=== PATIENT | female | born 1985 | race African-American/Black ===

== ENCOUNTER → 2020-06-23 08:42 | Outpatient (CLI) | payer BC, SELFPAY ==
--- NOTE | ~2020-06-23 | US_ITS ---
EXAMINATION: US OB <= 14 weeks fetus DATE: 06/23/2020 09:11 INDICATION: First trimester dating TECHNIQUE: Real-time pelvic transabdominal and transvaginal ultrasound was performed. COMPARISON: None. FINDINGS: The uterus measures 11.3 x 6.1 x 7.9 cm. There is an intrauterine gestational sac. A yolk sac is identified. heart motion is identified measuring 167 beats per minute (bpm) by M-mode Do ppler. The crown rump length measures 2.9 cm , which correlates with an estimated gestational a ge of 9 weeks and 5 day(s) (+/-) 6 day(s). The right ovary measures 5.8 x 3.6 x 5.4 cm and contains a 3.7 cm cyst. The left ovary measures 2.6 x 1.6 x 2.5 cm. There is normal vascular flow in the ovaries. There is no free fluid in the pelvis. IMPRESSION: 1. Live intrauterine with an estimated gestational age of 9 weeks and 5 day(s) (+/-) 6 day( s) and an estimated delivery date of 01/21/2021. Reviewed, dictated and finalized at location A. IMPRESSION: 1. Live intrauterine with an estimated gestational age of 9 weeks and 5 day(s) (+/-) 6 day(s) and an estimated delivery date of 01/21/2021.
== END ==
PROVIDERS: Visit Provider Obstetrics & Gynecology
DX: Z36.87 Encounter for antenatal screening for uncertain dates (principal); Z3A.09 9 weeks gestation of pregnancy
CPT/HCPCS: 76801

== ENCOUNTER 2021-01-09 17:10 | Outpatient (RCR) | payer BC, SELFPAY ==
[2020-12-28 16:50] VITALS: BP 101/63; PULSE 76
[2021-01-02 19:00] VITALS: BP 112/67; PULSE 76
[2021-01-06 15:44] VITALS: BP 106/64; PULSE 74
[2021-01-09 18:17] VITALS: BP 114/79; PULSE 75
== END 2021-01-28 09:25 | disposition home or self-care (01) ==
LOC: ANHOBOP 17:10
PROVIDERS: Visit Provider Obstetrics & Gynecology
DX: O24.419 Gestational diabetes mellitus in pregnancy, unspecified control (principal); Z3A.36 36 weeks gestation of pregnancy; Z3A.37 37 weeks gestation of pregnancy; Z3A.38 38 weeks gestation of pregnancy
CPT/HCPCS: 59025; 84112

== ENCOUNTER 2021-01-12 05:16 | Observation (INO) | payer BC, SELFPAY ==
--- NOTE | 2021-01-12 05:16 | OBADM ---
This patient, Odessa Molina, admitted to the OB room Labor/Delivery/Recovery 104 for observation. Patient/family oriented to hospital policies and general routines including ID bracelet, bed and alarms, visiting hours, pain management, procedures, bathroom and other care routines, personal items, smoking policy, room service/diet, and visiting hours. Patient/Family are encouraged to report perceived risks to care and to ask questions if they do not understand what they are told or what they should do.
[2021-01-12 05:33] VITALS: RESP 18; TEMP 36.4
--- NOTE | 2021-01-12 05:33 | PC.NURSE ---
pt came in with complaints of all over pain, mostly in her back and head. Pt states it started last night and she has not been able to sleep all night. pt has not taken any medication for her pain.
[2021-01-12 06:01] VITALS: BP 121/76; PULSE 66
[2021-01-12 06:02] LABS: Glucose Point of Care 92 mg/dl (65-105)
[2021-01-12 06:07] LABS: Add Urine Microscopic? YES; Appearance Urine Cloudy (Clear); Bacteria Urine Trace /hpf; Bilirubin Urine Negative (Negative); Blood Urine Negative (Negative); Color Urine Straw (Yellow); Glucose Urine UA Negative (Negative); Ketones Urine Negative (Negative); Leukocyte Esterase Ur Negative LEU/UL (Negative); Nitrate Urine Negative (Negative); Protein Urine Negative (Negative); RBC Urine 0-2 /hpf (0-2); Specific Grav Ur 1.006 (1.001-1.035); Squamous Epithelial Cell Urine Rare /hpf (Few); Urobilinogen Urine Negative mg/dL (<2.0); WBC Urine 0-3 /hpf
[2021-01-12 06:09] VITALS: BMI 30.4
[2021-01-12 06:15] VITALS: BP 127/81; PULSE 71
[2021-01-12] MEDS: ACETAMINOPHEN 500 MG TABLET 1000 MG PO (06:21)
[2021-01-12 06:34] LABS: Basophils Percent Auto 0.2 % (0.2-1.2); Eosinophils Percent Auto 0.4 % (0-4.4); Hematocrit 32.1 % (37.0-47.0); Immature Granulocyte Absolute 0.05 K/mm3 (0.00-0.031); Immature Granulocyte Percent A 0.5 % (0-0.5); Immature Platelet Fraction Pct 11.9 % (0.9-11.2); Lymphocytes Absolute Auto 1.72 K/mm3 (0.9-3.2); Lymphocytes Percent Auto 17.6 % (18.3-44.2); Mean Corpuscular HGB Conc 31.2 g/dl (32-36); Mean Corpuscular Hemoglobin 22.2 pg (26-34); Mean Corpuscular Volume 71.3 fl (80-100); Mean Platelet Volume 12.7 fl (7.4-10.4); Monocytes Absolute Auto 0.8 K/mm3 (0.1-0.6); Monocytes Percent Auto 7.9 % (2.6-8.5); Neutrophils Absolute Auto 7.2 K/mm3 (1.3-6.7); Neutrophils Percent Auto 73.4 % (45.5-73.1); Platelet Count Result 161 k/mm3 (150-375); Red Cell Distribution Width 14.7 % (11.5-14.5); White Blood Count 9.8 K/mm3 (4.5-10.0)
[2021-01-12 06:39] LABS: Creatinine Urine 55.8 mg/dL; Total Protein Urine Random 7 mg/dL; Ur Ttl Prot Creatinine Ratio 0.13 mg/mg (0-0.20)
[2021-01-12 06:44] LABS: Alanine Aminotransferase 13 U/L (4-35); Albumin Level 3.5 g/dL (3.5-5.1); Alkaline Phosphatase 170 U/L (38-126); Anion Gap 7 mmol/L (8-16); Aspartate Amino Transferase 22 U/L (14-36); Bilirubin,Total 0.3 mg/dL (0.2-1.3); Blood Urea Nitrogen 10 mg/dL (7-17); Calcium 9.5 mg/dL (8.4-10.2); Carbon Dioxide 21 mmol/L (22-30); Chloride 109 mmol/L (98-107); Estimated CRCL calculation 87 ml/min; Estimated Glomerular Filt Rate > 60; Glucose 91 mg/dL (65-110); Potassium 4.1 mmol/L (3.4-5.0); Sodium 137 mmol/L (137-145); Uric Acid 6.1 mg/dL (2.5-7.5)
--- NOTE | 2021-02-03 23:41 | PM.OBTRLD ---
OB - Triage/Final Diagnosis Visit Information Comments/Additional reasons for admission: I have assessed the risk for this patient, Odessa Molina, and determined that she would benefit from observation care. Evaluation Laboratory results: Laboratory Tests 01/12/21 01/12/21 01/12/21 05:57 05:59 06:15 WBC 9.8 RBC 4.50 Hgb 10.0 L Hct 32.1 L MCV 71.3 L MCH 22.2 L MCHC 31.2 L RDW 14.7 H Plt Count 161 MPV 12.7 H Immature Gran % (Auto) 0.5 Neut % (Auto) 73.4 H Lymph % (Auto) 17.6 L [place] % (Auto) 7.9 Eos % (Auto) 0.4 Baso % (Auto) 0.2 Lymph # (Auto) 1.72 [place] # (Auto) 0.8 H Eos # (Auto) 0.0 Baso # (Auto) 0.0 Abs Immat Gran (auto) 0.05 H Absolute Neuts (auto) 7.2 H Absolute Nucleated RBC 0.0 Nucleated RBC % 0.0 % Immature Plt Fraction 11.9 H Sodium Potassium Chloride Carbon Dioxide Anion Gap BUN Creatinine Estim Creat Clear Calc Estimated GFR Glucose POC Capillary Glucose 92 Uric Acid Calcium Total Bilirubin AST ALT Alkaline Phosphatase Total Protein Albumin Urine Color Straw Urine Appearance Cloudy H Urine pH 7.0 Ur Specific [place] 1.006 Urine Protein Negative Urine Glucose (UA) Negative Urine Ketones Negative Ur Blood (Man) Negative Urine Nitrate Negative Urine Bilirubin Negative Urine Urobilinogen Negative Leukocyte Esterase Rfl Negative Urine RBC 0-2 Urine WBC 0-3 Ur Squamous Epith Cells Rare Urine Bacteria Trace U Random Total Protein Urine Creatinine Protein/Creat Ratio 2 01/12/21 01/12/21 06:15 06:19 WBC RBC Hgb Hct MCV MCH MCHC RDW Plt Count MPV Immature Gran % (Auto) Neut % (Auto) Lymph % (Auto) [place] % (Auto) Eos % (Auto) Baso % (Auto) Lymph # (Auto) [place] # (Auto) Eos # (Auto) Baso # (Auto) Abs Immat Gran (auto) Absolute Neuts (auto) Absolute Nucleated RBC Nucleated RBC % % Immature Plt Fraction Sodium 137 Potassium 4.1 Chloride 109 H Carbon Dioxide 21 L Anion Gap 7 L BUN 10 Creatinine 0.70 Estim Creat Clear Calc 87 Estimated GFR > 60 Glucose 91 POC Capillary Glucose Uric Acid 6.1 Calcium 9.5 Total Bilirubin 0.3 AST 22 ALT 13 Alkaline Phosphatase 170 H Total Protein 7.0 Albumin 3.5 Urine Color Urine Appearance Urine pH Ur Specific [place] Urine Protein Urine Glucose (UA) Urine Ketones Ur Blood (Man) Urine Nitrate Urine Bilirubin Urine Urobilinogen Leukocyte Esterase Rfl Urine RBC Urine WBC Ur Squamous Epith Cells Urine Bacteria U Random Total Protein 7 Urine Creatinine 55.8 Protein/Creat Ratio 2 0.13 Final Diagnosis (1) False labor: Code(s): O47.9 - False labor, unspecified Status: Acute (2) PIH ( induced hypertension): Code(s): O13.9 - Gestational [-induced] hypertension without significant proteinuria, unspecified trimester Status: Acute
== END 2021-01-12 07:58 | disposition home or self-care (01) ==
PROVIDERS: Admitting Provider Obstetrics & Gynecology; Visit Provider Obstetrics & Gynecology
DX: O47.1 False labor at or after 37 completed weeks of gestation (principal); O13.3 Gestational [pregnancy-induced] hypertension without significant proteinuria, third trimester; Z3A.38 38 weeks gestation of pregnancy
CPT/HCPCS: 36415; 80053; 81001; 82570; 82948; 84156; 84550; 85025; 85055; A9270; G0378; G0379

== ENCOUNTER 2021-01-14 01:00 | Inpatient (IN) | payer BC, SELFPAY ==
[2021-01-14] VITALS (150 sets, daily range): BP systolic 83–149; BP diastolic 51–114; PULSE 52–265; TEMP 36.4–37.8; O2SAT 88–100; BMI 31.2
[2021-01-14 02:04] LABS: Glucose Point of Care 91 mg/dl (65-105)
[2021-01-14 02:10] LABS: Basophils Percent Auto 0.2 % (0.2-1.2); Eosinophils Percent Auto 0.2 % (0-4.4); Hematocrit 30.5 % (37.0-47.0); Hemoglobin 9.7 g/dL (12.0-15.0); Immature Granulocyte Absolute 0.05 K/mm3 (0.00-0.031); Immature Granulocyte Percent A 0.5 % (0-0.5); Immature Platelet Fraction Pct 12.2 % (0.9-11.2); Lymphocytes Absolute Auto 1.58 K/mm3 (0.9-3.2); Lymphocytes Percent Auto 16.8 % (18.3-44.2); Mean Corpuscular HGB Conc 31.8 g/dl (32-36); Mean Corpuscular Hemoglobin 22.5 pg (26-34); Mean Corpuscular Volume 70.6 fl (80-100); Mean Platelet Volume 12.8 fl (7.4-10.4); Monocytes Absolute Auto 0.7 K/mm3 (0.1-0.6); Monocytes Percent Auto 7.2 % (2.6-8.5); Neutrophils Percent Auto 75.1 % (45.5-73.1); Platelet Count Result 159 k/mm3 (150-375); Red Blood Count 4.32 M/mm3 (4.2-5.4); Red Cell Distribution Width 14.6 % (11.5-14.5); White Blood Count 9.4 K/mm3 (4.5-10.0)
[2021-01-14] MEDS: DINOPROSTONE 10 MG VAG INSERT VAGINAL (02:15)
--- NOTE | 2021-01-14 02:20 | LDADM ---
This patient, Odessa Molina, was admitted to Labor/Delivery/Recovery 109 on 01/14/21 at 01:00. Plans for labor, pain management and were discussed with patient. Patient/family oriented to hospital policies and general routines including ID bracelet, bed and alarms, visiting hours, pain management, procedures, bathroom and other care routines, personal items, smoking policy, room service/diet and guest tray routines, security routines, and visiting hours. Patient/Family are encouraged to report perceived risks to care and to ask questions if they do not understand what they are told or what they should do. See OBIX for further documentation.
[2021-01-14 06:38] LABS: Glucose Point of Care 66 mg/dl (65-105)
[2021-01-14 09:46] LABS: Glucose Point of Care 108 mg/dl (65-105)
[2021-01-14 11:41] LABS: Rapid Plasma Reagin Non-Reactive (NonReactive)
--- NOTE | 2021-01-14 11:56 | WPDOBADMIT ---
Obstetrics - Admit Note Admission Note: record reviewed. No pertinent additions to the history and/or any subsequent changes in the physical findings that are not consistent with the expected course of the were found. AROm yellow tinged fluid 1-/-2 Additions to the history and/or subsequent changes in the physical findings follow. None.
[2021-01-14] MEDS: fentaNYL CITRATE INJ (*CRX) 100 MCG/2 ML VIAL 50 MCG IV PUSH (13:27)
[2021-01-14 14:17] LABS: Glucose Point of Care 60 mg/dl (65-105)
[2021-01-14] MEDS: fentaNYL CITRATE INJ (*CRX) 100 MCG/2 ML VIAL IV PUSH (14:30)
[2021-01-14] MEDS: OXYTOCIN 30 UNITS/NS 500 ML 30 UNITS/500 ML BAG 6 UNITS IV CONT (15:45)
[2021-01-14] MEDS: LACTATED RINGERS 1,000 ML 125 ML IV CONT ×3 (15:46→22:25)
--- NOTE | 2021-01-14 16:49 | WPDANESEPPF ---
Anes - Initial Pre Proc Eval Procedure: labor epidural Date/Time: 01/14/21 16:49 Surgeon: Pancho Guajardo MD Pre Op Diagnosis: labor pain Pre Op Diagnosis: Induction Patient Data Age: 35 Gender: F Height: 1.55 m Weight: 75 kg Last Vital Signs Temp 36.6 C 01/14/21 11:55 Pulse 61 01/14/21 16:48 BP 119/79 01/14/21 16:48 Pulse Ox 100 01/14/21 16:47 Allergies Allergy/AdvReac Type Severity Reaction Status Date / Time No Known Allergies Allergy Verified 12/25/20 14:31 Home Medications Medication Instructions Recorded Confirmed Type Novolin N NPH U-100 Insulin 4 unit SUBCUT HS 01/06/21 01/14/21 History PNV cmb#95-ferrous fumarate-FA 1 tablet PO DAILY 01/06/21 01/14/21 History [] aspirin 81 mg PO DAILY 01/06/21 01/14/21 History Laboratory Tests 01/14/21 01/14/21 01/14/21 01:56 01:58 01:58 WBC 9.4 K/mm3 K/mm3 (4.5-10.0) RBC 4.32 M/mm3 M/mm3 (4.2-5.4) Hgb 9.7 g/dL L g/dL (12.0-15.0) Hct 30.5 % L % (37.0-47.0) MCV 70.6 fl L fl (80-100) MCH 22.5 pg L pg (26-34) MCHC 31.8 g/dl L g/dl (32-36) RDW 14.6 % H % (11.5-14.5) Plt Count 159 k/mm3 k/mm3 (150-375) MPV 12.8 fl H fl (7.4-10.4) Immature Gran % (Auto) 0.5 % % (0-0.5) Neut % (Auto) 75.1 % H % (45.5-73.1) Lymph % (Auto) 16.8 % L % (18.3-44.2) Hamblen % (Auto) 7.2 % % (2.6-8.5) Eos % (Auto) 0.2 % % (0-4.4) Baso % (Auto) 0.2 % % (0.2-1.2) Lymph # (Auto) 1.58 K/mm3 K/mm3 (0.9-3.2) Hamblen # (Auto) 0.7 K/mm3 H K/mm3 (0.1-0.6) Eos # (Auto) 0.0 K/mm3 K/mm3 (0-0.3) Baso # (Auto) 0.0 K/mm3 K/mm3 (0.0-0.1) Abs Immat Gran (auto) 0.05 K/mm3 H K/mm3 (0.00-0.031) Absolute Neuts (auto) 7.0 K/mm3 H K/mm3 (1.3-6.7) Absolute Nucleated RBC 0.0 K/mm3 K/mm3 (0.0-0.012) Nucleated RBC % 0.0 % % (0.0-0.2) % Immature Plt Fraction 12.2 % H % (0.9-11.2) POC Capillary Glucose 91 mg/dl mg/dl (65-105) RPR Non-reactive (NonReactive) Blood Type Antibody Screen 01/14/21 01/14/21 01/14/21 01:58 06:24 09:43 WBC RBC Hgb Hct MCV MCH MCHC RDW Plt Count MPV Immature Gran % (Auto) Neut % (Auto) Lymph % (Auto) Hamb[place] % (Auto) Eos % (Auto) Baso % (Auto) Lymph # (Auto) Hamb[place] # (Auto) Eos # (Auto) Baso # (Auto) Abs Immat Gran (auto) Absolute Neuts (auto) Absolute Nucleated RBC Nucleated RBC % % Immature Plt Fraction POC Capillary Glucose 66 mg/dl mg/dl 108 mg/dl H mg/dl (65-105) (65-105) RPR Blood Type A Positive Antibody Screen Negative 01/14/21 14:14 WBC RBC Hgb Hct MCV MCH MCHC RDW Plt Count MPV Immature Gran % (Auto) Neut % (Auto) Lymph % (Auto) Hamb[place] % (Auto) Eos % (Auto) Baso % (Auto) Lymph # (Auto) Hamb[place] # (Auto) Eos # (Auto) Baso # (Auto) Abs Immat Gran (auto) Absolute Neuts (auto) Absolute Nucleated RBC Nucleated RBC % % Immature Plt Fraction POC Capillary Glucose 60 mg/dl L mg/dl (65-105) RPR Blood Type Antibody Screen Patient hx anesthesia problems: none Family hx anesthesia problems: none Results Review: All pre-operative results and documents have been reviewed as part of the pre-operative evaluation. [facility] Past Medical History Medical History (Updated 01/14/21 @ 16:49 by
[2021-01-14 18:21] LABS: Glucose Point of Care 70 mg/dl (65-105)
[2021-01-14 20:55] LABS: Glucose Point of Care 62 mg/dl (65-105)
[2021-01-14] MEDS: SODIUM CHLORIDE 0.9% IV 300 ML 600 ML I-UTERINE (22:26)
[2021-01-14 23:20] LABS: Glucose Point of Care 71 mg/dl (65-105)
[2021-01-15] VITALS (94 sets, daily range): BP systolic 83–156; BP diastolic 36–108; PULSE 54–119; RESP 14–18; TEMP 36.5–37.1; O2SAT 94–100
[2021-01-15 01:37] LABS: Glucose Point of Care 85 mg/dl (65-105)
[2021-01-15 03:04] LABS: Glucose Point of Care 82 mg/dl (65-105)
--- NOTE | 2021-01-15 03:41 | WPDANESEPPF ---
Anes - Initial Pre Proc Eval Procedure: Operation Date: 01/15/21 03:45 Proposed Procedures p Section - Pancho Guajardo MD Date/Time: 01/15/21 03:41 Surgeon: Pancho Guajardo MD Pre Op Diagnosis: non reassuring heart tones Patient Data Age: 35 Gender: F Height: 1.55 m Weight: 75 kg Last Vital Signs Temp 37.1 C 01/15/21 02:45 Pulse 66 01/15/21 03:30 BP 149/108 H 01/15/21 03:30 Pulse Ox 100 01/15/21 03:32 Allergies Allergy/AdvReac Type Severity Reaction Status Date / Time No Known Allergies Allergy Verified 12/25/20 14:31 Home Medications Medication Instructions Recorded Confirmed Type Novolin N NPH U-100 Insulin 4 unit SUBCUT HS 01/06/21 01/14/21 History PNV cmb#95-ferrous fumarate-FA 1 tablet PO DAILY 01/06/21 01/14/21 History [] aspirin 81 mg PO DAILY 01/06/21 01/14/21 History Laboratory Tests 01/14/21 01/14/21 01/14/21 01:58 01:58 06:24 POC Capillary Glucose 66 mg/dl mg/dl (65-105) RPR Non-reactive (NonReactive) Blood Type A Positive Antibody Screen Negative 01/14/21 01/14/21 01/14/21 09:43 14:14 18:13 POC Capillary Glucose 108 mg/dl H mg/dl 60 mg/dl L mg/dl 70 mg/dl mg/dl (65-105) (65-105) (65-105) RPR Blood Type Antibody Screen 01/14/21 01/14/21 01/15/21 20:48 23:17 00:59 POC Capillary Glucose 62 mg/dl L mg/dl 71 mg/dl mg/dl 85 mg/dl mg/dl (65-105) (65-105) (65-105) RPR Blood Type Antibody Screen 01/15/21 02:43 POC Capillary Glucose 82 mg/dl mg/dl (65-105) RPR Blood Type Antibody Screen Patient hx anesthesia problems: none Family hx anesthesia problems: none Results Review: All pre-operative results and documents have been reviewed as part of the pre-operative evaluation. PMFSH Past Medical History Medical History (Updated 01/14/21 @ 16:49 by Richard Francis DO) GDM (gestational diabetes mellitus) Family History Family History (Updated 12/25/20 @ 14:32 by Saroj Lester RN) Grandparent Diabetes mellitus Hypertension Mother Diabetes mellitus Hypertension Social History Social History Smoking status: Never smoker Substance use: never Spiritual care concerns: No Anes - Eval Final PreProcedure Day of Procedure 01/15/21 03:41 Patient weight: obese Heart: regular rate and rhythm Lungs: clear to auscultation and normal air movement Airway: Mallampati scale class II Neurological: alert and oriented Last oral intake: >/= 8 hours ASA classification: III Emergent: yes Anesthetic plan: proceed Anesthesia type and monitoring: regional epidural and standard monitoring Results Review: All pre-operative results and documents have been reviewed as part of the pre-operative evaluation. Informed Consent: The patient's anesthetic plan and its attendant risks and benefits were discussed with the patient/family/POA. Questions were solicited and answers provided to the satisfaction of the patient/family/POA.
[2021-01-15] MEDS: ceFAZolin 2 GM/D5W 50 ML 2 GM/50 ML BAG IVPB (03:50)
--- NOTE | 2021-01-15 04:53 | P.PCNOB_ITS ---
OB - Delivery Note Procedure Delivery date: 01/15/21 Procedure: Procedures Operation Date: 01/15/21 03:45 <No data on this case meets the specified criteria> events: Labor Induction Intrapartal events: None Induction method: AROM Delivery monitor: external FHT, external uterine and internal uterine Route of delivery: Laceration Description: None Specimen: Yes Quantitative Blood Loss (ml): 640 Anesthesia type: Epidural Disposition: PACU [place] Baby Date of : 01/15/21 Time of : 04:03 Weeks of gestation at delivery: 39 Infant gender: Male Weight (pounds): 7 Weight (ounces): 14 presentation: vertex position: Left Occiput Posterior Placenta delivery description: Spontaneous cord vessel description: 3 Vessels and Clamped/Cut score one minute: 8 score five minutes: 9
--- NOTE | 2021-01-15 04:56 | PM.OBDSVD ---
DS: Admitting Diagnosis Discharge Date 01/18/21 Admitting Diagnosis induction of Labor OB - DS: Summary OB Procedures : None OB Procedures Intrapartum: OB Procedures: : None Peripartum Data Procedures: Procedures Operation Date: 01/15/21 03:45 <No data on this case meets the specified criteria> Time Spent with Patient Time attestation: Total time spent providing and/or coordinating discharge services: DS: Data Data Completed and Pending Labs on day of discharge: Labs from last 24 hours 01/15/21 01/15/21 01/14/21 02:43 00:59 23:17 POC Capillary Glucose 82 85 71 RPR 01/14/21 01/14/21 01/14/21 20:48 18:13 14:14 POC Capillary Glucose 62 L 70 60 L RPR 01/14/21 01/14/21 01/14/21 09:43 06:24 01:58 POC Capillary Glucose 108 H 66 RPR Non-reactive Discharge Plan Discharge Attending physician on discharge: Pancho Guajardo Consulting providers: Richard Francis Discharging Clinician: Pancho Guajardo Patient Disposition: Home, Self-Care Activity: may shower, may drive after 2 weeks and pelvic rest Diet: regular Discharge Instructions: Education: Mom and Baby Guide and Preeclampsia Handout Given to: Mother Follow-Up: Call your delivering provider's office for an appointment to be seen in: 1 Week Mom and baby should come to the [facility] for the follow-up appointment. Appointment Date/Time: January 19, 2021 at 11:00 am What to expect at your follow-up visit: Physical Assessment Call [phone] if you are unable to keep your appointment time. BREAST CARE: * Wear a snug supportive bra. * For engorgement discomfort: Breast Feeding: * Apply warm moist washcloths * Express milk as needed to relieve engorgement * Wear loose clothing * For sore nipples: * Identify correct latch-on * Apply warm moist washcloths before and after nursing * Air dry nipples after nursing * May apply Lansinoh cream to nipples ABDOMINAL INCISION: (if applicable) * Allow incision to air dry * Do NOT use lotions for powders on your incision * When showering, allow soap and water to run over the incision, but do not wash incision EPISIOTOMY/PERINEAL CARE: * Until bleeding stops, use your elizabeth bottle after urinating * Change your pad frequently throughout the day * No tub baths until seen by your physician - You may shower ACTIVITY: * Rest as much as possible. * Do not exercise or lift anything heavier than your baby (such as laundry or other children.) * Avoid stairs or driving as much as possible. * Do not put anything into the vagina. No douching, tampons, or sexual activity until seen by physician. NOTIFY PHYSICIAN IF YOU HAVE ANY QUESTIONS OR IF ANY OF THE FOLLOWING SYMPTOMS OCCUR: * If your incision becomes red, swollen, or more painful than what you have experienced in the hospital. * If your vaginal bleeding becomes foul smelling. * If your vaginal bleeding becomes more heavy than a period or if your bleeding changes from pink to bright red. However, you may pass an occasional walnut-sized clot once or twice for the first week . * If you experience a sharp, shooting pain in you calves. * If you discover a hard, reddened area on your breast or if you experience flu-like symptoms. DIET: * Eat regular, well-balanced meals. * Drink plenty of fluids daily. If , drink to thirst. Stand Alone Forms: General Discharge Information Follow-up/Referrals: Pancho Guajardo MD [Physician] - Discharge Medications: New hydrocodone-acetaminophen 5-325 mg Tablet 1 tablet PO Q3H PRN (Reason: Moderate Pain (4-6)) Qty: 30 RF: 0 polysaccharide iron complex 150 mg iron Capsule 150 mg PO BIDWM Qty: 0 RF: 0 ibuprofen 600 mg Tablet 600 mg PO Q6H PRN (Reason: Cramping) Qty: 0 RF: 0 hydrocodone-acetaminophen 5-300 mg table
--- NOTE | 2021-01-15 05:01 | W.PM.PROC2 ---
Procedure Note - Detailed Date of Procedure 01/15/21 Pre-op Diagnosis non reassuring heart tones Post-op Diagnosis same Procedure Performed LTCS Surgeon Pancho Guajardo MD Anesthesia spinal Findings male OP position Description of Procedure Patient was taken to the operating room with IV running and epidural in place. She was prepared and draped in a normal sterile fashion and placed in the supine position with a leftward tilt. A Pfannenstiel incision was made with scalpel carried out underlying layer of fascia. The fascial incision was then extended bilaterally with blunt dissection. The abdominal muscles were in the midline and the peritoneum was entered bluntly. Bladder blade was inserted. His scalp was used to make a transverse incision in the uterus and this was extended bluntly. The head was delivered atraumatically and the remainder of the fetus was delivered the cord was clamped and cut and the fetus was handed off to the waiting nurse at temporary staff accountant. The cord blood was obtained for gases are obtained. The placenta was delivered spontaneously and the uterus was exteriorized and cleared of all clots and debris. Uterine incision was closed with 0 Monocryl in a running locked fashion a 2nd layer of the same suture she used to imbricate this incision. There was bleeding noted in the left lower quadrant the uterus and a [id number] stitch was placed. Hemostasis was assured the uterus was returned to the abdomen. abdomen was irrigated with fluid cleared of all clots and debris. The muscles were examined for hemostasis the fascia was closed with 0 Vicryl in a running fashion the subcutaneous tissue was irrigated hemostasis assured and the skin was closed with 4-0 Vicryl on a Kaleb needle. Patient received 2g of Ancef prior to skin incision and patient was taken to the recovery room in stable condition. Estimated Blood Loss -640.0 Urine Output 200 Drains Yes Packing No Pathology yes Complications None Condition stable Disposition PACU
[2021-01-15] MEDS: MORPHINE SULFATE (*CRX) 2 MG/ML INJ IV PUSH ×2 (05:42→06:08)
--- NOTE | 2021-01-15 07:08 | PC.NURSE ---
Patient transferred to post room #284 via stretcher. Support person present. Oriented to unit, room, information board, rooming in, admission packet and security measures. Patient verbalizes understanding.
[2021-01-15] MEDS: KETOROLAC 30 MG/ML VIAL (*BKC) IV PUSH (08:41)
--- NOTE | 2021-01-15 09:35 | PC.NURSE ---
Mother called out for assist with feeding, reporting she bottle fed for first feeding. is able to freely thrust tongue past gum ridge and flange both lips. Skin is intact on both nipples, no redness and bruising noted. Reviewed feeding cues, frequencies, duration of feedings, feeding elimination flow sheet, and signs of adequate intake. Demonstrated stimulation techniques to wake for feeding. Assisted with infant to breast. Reviewed positioning/alignment in cross cradle, holding breast in ?U? hold and guided asymmetrical latch on. Reviewed rational for each. able to latch correctly within a few attempts. nursed eagerly with steady draws and occasional/frequent swallowing noted, some pausing noted. Reviewed signs of a correct latch, effective nursing and suck swallow ratio. Suggested mother stimulate while feeding to increase stimulation for milk supply, for increased intake and to assist with maintaining deep latch. would slip to shallow latch causing tenderness. Demonstrated how to adjust latch more deeply while feeding if needed. Mother reports she can feel the difference in latch with no tenderness. Nipple care reviewed of lanolin after feedings, warm compresses as needed. Instructed mother to call out for RN assistance if she is unable to latch infant for feeding or she has discomfort with nursing. Instructed feeding should be initiated three hours from start of last feeding or if feeding cues are noted before. Mother voiced understanding of information shared.
[2021-01-15] MEDS: DEXTROSE 5%/0.45% SOD CHL 1,000 ML 125 ML IV CONT (11:09)
[2021-01-15] MEDS: DOCUSATE SODIUM 100 MG CAPSULE PO (20:15)
[2021-01-15] MEDS: IBUPROFEN 600 MG TABLET PO (20:15)
[2021-01-15] MEDS: HYDROcodone/acetaminophen (*CRX) 10-325 MG TABLET 1 TAB PO (20:16)
[2021-01-15] MEDS: SIMETHICONE 80 MG TAB.CHEW PO (20:45)
[2021-01-16 03:00] VITALS: BP 120/64; PULSE 80; RESP 18; TEMP 36.6
[2021-01-16] MEDS: IBUPROFEN 600 MG TABLET PO ×3 (04:05→16:27)
[2021-01-16] MEDS: HYDROcodone/acetaminophen (*CRX) 5-325 MG TABLET 1 TAB PO ×3 (04:05→16:27)
[2021-01-16 04:59] LABS: Basophils Percent Auto 0.1 % (0.2-1.2); Eosinophils Percent Auto 0.1 % (0-4.4); Hematocrit 23.5 % (37.0-47.0); Hemoglobin 7.4 g/dL (12.0-15.0); Immature Granulocyte Percent A 0.7 % (0-0.5); Lymphocytes Absolute Auto 1.33 K/mm3 (0.9-3.2); Lymphocytes Percent Auto 9.4 % (18.3-44.2); Mean Corpuscular HGB Conc 31.5 g/dl (32-36); Mean Corpuscular Hemoglobin 22.2 pg (26-34); Mean Corpuscular Volume 70.6 fl (80-100); Mean Platelet Volume 13.1 fl (7.4-10.4); Monocytes Absolute Auto 0.7 K/mm3 (0.1-0.6); Monocytes Percent Auto 5.1 % (2.6-8.5); Neutrophils Percent Auto 84.6 % (45.5-73.1); Platelet Count Result 116 k/mm3 (150-375); Red Blood Count 3.33 M/mm3 (4.2-5.4); Red Cell Distribution Width 14.4 % (11.5-14.5); White Blood Count 14.2 K/mm3 (4.5-10.0)
[2021-01-16 08:30] VITALS: BP 120/65; PULSE 76; RESP 20; TEMP 36.4; O2SAT 97
--- NOTE | 2021-01-16 08:55 | PC.NURSE ---
Mother called out for assist with feeding. Mother reports had nurses bottle feed infant during the night. is sleepy and having difficulties with latching. Reviewed infant feeding cues, frequencies, duration of feedings, feeding elimination flow sheet, and signs of adequate intake. Demonstrated stimulation techniques to wake for feeding. Assisted with infant to breast. Reviewed positioning/alignment in football, holding breast in ?C? hold and guided asymmetrical latch on. Reviewed rational for each. Several attempts before able to latch correctly. Infant nursed eagerly with steady draws and frequent swallowing noted, some pausing noted. Reviewed signs of a correct latch, effective nursing and suck swallow ratio. Suggested mother stimulate while feeding to increase stimulation for milk supply, for increased intake and to assist with maintaining deep latch. . would slip to shallow latch causing tenderness. Demonstrated how to adjust latch more deeply while feeding if needed. Mother reports she can feel the difference in latch with no tenderness. Nipple care reviewed of lanolin after feedings, warm compresses as needed. Instructed mother to call out for RN assistance if she is unable to latch for feeding or she has discomfort with nursing. Instructed feeding should be initiated three hours from start of last feeding or if feeding cues are noted before. Mother voiced understanding of information shared.
--- NOTE | 2021-01-16 08:57 | WPDANLDNPN2 ---
Anes-Prog Note L&D-Neuraxial Date/Time: 01/16/21 08:57 Neuraxial medications: epidural PF morphine Opiod-related complaints: none Patient feedback: Patient satisfied with post-operative pain management.
--- NOTE | 2021-01-16 08:58 | WPDANLDPN2 ---
Anes-Prog Note L&D Date/Time: 01/16/21 08:58 Comfortable throughout: labor and section Neuraxial method: epidural Epidural/Spinal procedure site: clean & non-tender Neuro status: Neuro function grossly intact. Cardiovascular status: normal Respiratory status: normal Airway patency: baseline Mental status: baseline Post-Op hydration status: normal Vital Signs: Last Vital Signs Temp 97.9 F 01/16/21 03:00 Pulse 80 01/16/21 03:00 Resp 18 01/16/21 03:00 BP 120/64 01/16/21 03:00 Pulse Ox 98 01/15/21 15:45 Pain score (VAS): 0 I/O: Intake & Output 01/15/21 01/16/21 01/16/21 23:59 07:59 15:59 Intake Total 1000 2000 Output Total 525 2900 Balance 475 -900 Patient feedback: Patient satisfied with anesthetic care.
[2021-01-16] MEDS: POLYSACCHARIDE IRON COMPLEX 150 MG CAPSULE PO ×2 (09:31→16:27)
[2021-01-16] MEDS: DOCUSATE SODIUM 100 MG CAPSULE PO ×2 (09:31→16:26)
[2021-01-16] MEDS: MULTIVIT/MIN/PREN/FOL AC/IRON TABLET 1 TAB PO (09:32)
[2021-01-16 18:30] VITALS: BP 118/50; PULSE 87; RESP 18; TEMP 36.6
[2021-01-16 18:45] VITALS: BP 118/50; PULSE 87; RESP 18; TEMP 36.6
[2021-01-17] MEDS: HYDROcodone/acetaminophen (*CRX) 10-325 MG TABLET 1 TAB PO ×3 (00:32→17:27)
[2021-01-17] MEDS: IBUPROFEN 600 MG TABLET PO ×3 (00:32→17:27)
[2021-01-17 08:25] VITALS: BP 111/77; PULSE 99; RESP 18; TEMP 36.8; O2SAT 100
[2021-01-17] MEDS: DOCUSATE SODIUM 100 MG CAPSULE PO ×2 (09:15→17:27)
[2021-01-17] MEDS: MULTIVIT/MIN/PREN/FOL AC/IRON TABLET 1 TAB PO (09:15)
[2021-01-17] MEDS: POLYSACCHARIDE IRON COMPLEX 150 MG CAPSULE PO ×2 (09:15→17:27)
--- NOTE | 2021-01-17 09:55 | PM.OBPNVD ---
OB - PN: Subj Subjective Date/time seen: 01/16/21 07:55 doing okay no complaints pain well controlled. OB - PN: Obj Data Labs CBC & Chem 7: 01/16/21 04:23 OB - PN A/P Assessment and Plan (1) intolerance to labor, delivered, current hospitalization: Code(s): O77.9 - Labor and delivery complicated by stress, unspecified Status: Acute Assessment and Plan: s/p LTCS continue with pp care will continue with PNV and Iron supplememts Time Spent With Patient Time: Total time spent is greater than 50% in coordination of care (as documented) at patient's floor/unit and/or counseling patient: Exam Narrative: inc c/d/i ff below umbilicus
--- NOTE | 2021-01-17 09:59 | PM.OBPNVD ---
OB - PN: Subj Subjective Date/time seen: 01/17/21 09:59 doing well today ambulating well and bleeding minimal OB - PN: Obj Data Labs CBC & Chem 7: 01/16/21 04:23 OB - PN A/P Assessment and Plan (1) intolerance to labor, delivered, current hospitalization: Code(s): O77.9 - Labor and delivery complicated by stress, unspecified Status: Acute Assessment and Plan: continue with pp care. Time Spent With Patient Time: Total time spent is greater than 50% in coordination of care (as documented) at patient's floor/unit and/or counseling patient: Exam Narrative: inc c/d/i
--- NOTE | 2021-01-17 11:10 | PC.NURSE ---
Mother called out for assist with feeding, infant crying and will not latch. . Demonstrated self expression of colostrum into infant's mouth to to calm. Assisted with to breast. Reviewed positioning/alignment in cross cradle, holding breast in ?U? hold and guided asymmetrical latch on. Reviewed rational for each. Several attempts before infant able to latch correctly. nursed eagerly with steady draws and frequent swallowing noted, some pausing noted. Reviewed signs of a correct latch, effective nursing and suck swallow ratio. Suggested mother stimulate while feeding to increase stimulation for milk supply, for increased intake and to assist with maintaining deep latch. Infant was able to maintain latch without discomfort to mother. Nipple care reviewed of lanolin after feedings, warm compresses as needed. Instructed mother to call out for RN assistance if she is unable to latch for feeding or she has discomfort with nursing. Instructed feeding should be initiated three hours from start of last feeding or if feeding cues are noted before. Mother voiced understanding of information shared.
[2021-01-17 18:30] VITALS: BP 123/72; PULSE 83; RESP 18; TEMP 36.7
[2021-01-18] MEDS: HYDROcodone/acetaminophen (*CRX) 10-325 MG TABLET 1 TAB PO ×2 (06:05→12:47)
[2021-01-18] MEDS: IBUPROFEN 600 MG TABLET PO ×2 (06:05→12:47)
--- NOTE | 2021-01-18 07:50 | PC.NURSE ---
Observed mother is able to independently latch infant with appropriate positioning/alignment. She denies any nipple discomfort, is feeding as required and waking infant to feed if needed.
--- NOTE | 2021-01-18 08:19 | PM.OBPNVD ---
OB - PN: Subj Subjective Date/time seen: 01/18/21 08:19 doing well no complaints OB - PN: Obj Data Labs CBC & Chem 7: 01/16/21 04:23 OB - PN A/P Assessment and Plan (1) intolerance to labor, delivered, current hospitalization: Code(s): O77.9 - Labor and delivery complicated by stress, unspecified Status: Acute Assessment and Plan: s/p LTCS d/c home with continued daily iron and PNV. Time Spent With Patient Time: Total time spent is greater than 50% in coordination of care (as documented) at patient's floor/unit and/or counseling patient: Exam Narrative: ff below umbilicus inc C/d/I
[2021-01-18] MEDS: MULTIVIT/MIN/PREN/FOL AC/IRON TABLET 1 TAB PO (08:58)
[2021-01-18] MEDS: POLYSACCHARIDE IRON COMPLEX 150 MG CAPSULE PO (08:58)
[2021-01-18] MEDS: DOCUSATE SODIUM 100 MG CAPSULE PO (08:58)
--- NOTE | 2021-01-18 09:00 | PC.NURSE ---
Patient instructed to view the discharge video Mother & Baby Care, The First Two Weeks . Patient was given the opportunity and encouraged to ask questions. Patient verbalized understanding of information shared and has been given the mother/baby guide for home reference.
[2021-01-18 09:30] VITALS: BP 125/78; PULSE 77; RESP 18; TEMP 36.4; O2SAT 99
--- NOTE | 2021-01-18 10:40 | PC.NURSE ---
Consult with pt., observed mother is able to independently latch with appropriate positioning/alignment. eagerly latches on first attempt with long rhythmical draws and frequent swallowing noted. She denies any nipple discomfort, is feeding as required and waking to feed if needed. Infant has had at least 8 effective feedings in the past 24 hours, and is currently meeting outcomes for weight, output, jaundice and feeding frequencies. Mother states she feels confident to continue effective at home. Mother will continue to supplement after if she feels is not satisfied. Reviewed paced feedings and to stop if infant is satisfied. Reviewed transition to breast milk, signs of adequate intake, and engorgement/relief. Instructed to call ICP if intake/output less than required. Reviewed regular medications mother is taking. Information provided per Ara. Reviewed community resources on the [facility] website and in the Mom/Baby guide. Information on outpatient services provided. Mother has no further questions at this time. Instructed feeding should be initiated three hours from start of last feeding or if feeding cues are noted before until seen by ICP. Mother voiced understanding of information shared.
[2021-01-19 11:01] VITALS: BP 122/82; PULSE 89; RESP 20; TEMP 37.2; O2SAT 100
--- NOTE | 2021-02-03 23:59 | PM.IMHP ---
H&P: HPI History of Present Illness Date/Time: 02/03/21 23:59 35 y/o G1PO admitted for IOL. Patient Had cervidil overnight with Pitocin started and AROM 1-2/50/-2 yellow tinged fluid. Patient progressed to 8cm with continued category 3 tracings despite intervention. Decision made to proceed with csection. Chief Complaint: intolerance to labor Review of Systems Review of Systems: All systems reviewed & are unremarkable except as noted in HPI and below PMFSH Past Medical History Medical History False labor intolerance to labor, delivered, current hospitalization GDM (gestational diabetes mellitus) PIH ( induced hypertension) Family History Family History Grandparent Diabetes mellitus Hypertension Mother Diabetes mellitus Hypertension Social History Social History Smoking status: Never smoker Substance use: never Spiritual care concerns: No Meds Home Medications and Allergies Home Medications Medication Instructions Recorded Confirmed Type PNV cmb#95-ferrous fumarate-FA 1 tablet PO DAILY 01/06/21 01/14/21 History [] hydrocodone-acetaminophen 1 tablet PO Q3H PRN #30 tablet 01/18/21 Rx hydrocodone-acetaminophen 1 tablet PO Q4H PRN #30 tablet 01/18/21 Rx ibuprofen 600 mg PO Q6H PRN #0 tablet 01/18/21 Rx polysaccharide iron complex 150 mg PO BIDWM #0 cap 01/18/21 Rx Allergies Allergy/AdvReac Type Severity Reaction Status Date / Time No Known Allergies Allergy Verified 12/25/20 14:31 Exam Const: General: healthy appearing Resp: Auscultation: clear to auscultation bilaterally Cardio: Rate: regular rate Rhythm: regular rhythm GI: Other: gravid Assessment and Plan Assessment and plan (1) intolerance to labor, delivered, current hospitalization: Code(s): O77.9 - Labor and delivery complicated by stress, unspecified Status: Acute Assessment and Plan: Plan csection. Risk and benefits reviewed with patient in detail.
== END 2021-01-18 13:15 | disposition home or self-care (01) | DRG 788 ==
LOC: ANHLDR 01-15 03:42 → ANHOB2 01-15 07:23
PROVIDERS: Admitting Provider Obstetrics & Gynecology; Visit Provider Obstetrics & Gynecology
PROC: 10D00Z1 Extraction of Products of Conception, Low, Open Approach (ICD-10-PCS; CPT 59514; principal; 2021-01-15 03:45)
DX: O24.429 Gestational diabetes mellitus in childbirth, unspecified control (principal); O77.0 Labor and delivery complicated by meconium in amniotic fluid; O76 Abnormality in fetal heart rate and rhythm complicating labor and delivery; Z3A.39 39 weeks gestation of pregnancy; Z37.0 Single live birth
CPT/HCPCS: 36415; 82948; 85025; 85055; 86592; 86850; 86900; 86901; 88307; A9270; J0690; J1885; J2270; J2274; J2405; J2590; J2795; J3010; J7030; J7120

== ENCOUNTER 2021-12-06 14:12 | Outpatient (CLI) | payer BC, SELFPAY ==
--- NOTE | ~2021-12-06 | US_ITS ---
EXAMINATION: US pelvic complete DATE: 12/06/2021 14:33 INDICATION: Displacement of the IUD. Missing strings. Comparison:Ultrasound dated 06/23/2020 TECHNIQUE: Multiple transabdominal and endovaginal sonographic images of the pelvis performed. FINDINGS: The uterus measures 12.2 x 4.8 x 4.7 cm. There is an IUD present in the endometrium. The en dometrial complex measures 5 mm. The right ovary measures 3.5 x 2 x 2.8 cm and the left ovary measures 3.6 x 1.4 x 2.5 cm. There are small follicles in each ovary. Normal doppler signal in both ovaries. There is no free fluid in the pelvis. There are no abnormal masses seen on either side. IMPRESSION: 1. Enlarged uterus. IUD in expected position in the endometrium. Reviewed, dictated and finalized at location A.
== END 2021-12-06 14:13 ==
LOC: MICIMG 14:15
PROVIDERS: PCP Obstetrics & Gynecology Gynecology; Visit Provider Obstetrics & Gynecology Gynecology
DX: T83.32XA Displacement of intrauterine contraceptive device, initial encounter (principal); N85.2 Hypertrophy of uterus
CPT/HCPCS: 76856

== ENCOUNTER 2024-10-28 11:55 | Outpatient (CLI) | payer BC, SELFPAY ==
--- NOTE | ~2024-10-28 | MM_ITS ---
EXAMINATION: MM screening naila BI w leo HISTORY: Screening TECHNIQUE: Craniocaudal and mediolateral oblique 3-D tomosynthesis images were obtained and synthetic 2-D images were generated. CAD analysis was submitted and interpreted. COMPARISON: No prior mammogram is available for comparison at this institution. BREAST PARENCHYMAL COMPOSITION: Dense: The breasts are heterogeneously dense, which may obscure small masses FINDINGS: There is no evidence of suspicious mass, calcification, or architectural distortion to sugg est malignancy in either breast. There has been no suspicious interval change. IMPRESSION: 1. No mammographic evidence of malignancy. 2. Recommend routine screening mammography in one year. BI-RADS Category 1: Negative Reviewed, dictated and finalized at location A.
== END 2024-10-28 11:56 | disposition home or self-care (01) ==
PROVIDERS: PCP Obstetrics & Gynecology Gynecology; Visit Provider Obstetrics & Gynecology Gynecology
DX: Z12.31 Encounter for screening mammogram for malignant neoplasm of breast (principal)
CPT/HCPCS: 77063; 77067